=== PATIENT | male | born 1985 | race Caucasian/White ===

== ENCOUNTER 2018-07-11 13:46 | Emergency (ER) | payer OTHER ==
[~2018-07-11 13:46] MED LIST: FEXO1TAB39 PO; MULT1CAP41 PO
--- NOTE | 2018-07-11 13:49 | ER Report ---
History and Physical Time Seen By MD: 13:50 HPI/ROS CHIEF COMPLAINT: Laceration to left index finger HISTORY OF PRESENT ILLNESS: 33-year-old male patient presents to emergency room with complaint of laceration to the left index finger. Patient states that he was using a mud grinder to get stone at work. He states that his finger got sucked into the mud grinder. States that since then he's been having a significant amount of pain. He states he did apply pressure to the wound. He denies any numbness or tingling. Patient states that his last tetanus shot was 2 years ago. REVIEW OF SYSTEMS: Respiratory: No cough, no dyspnea. Cardiovascular: No chest pain, no palpitations. Gastrointestinal: No vomiting, no abdominal pain. Musculoskeletal: No back pain. Allergies: Uncoded Allergies: METHEMASOL (Allergy, Unknown, SHUTS MY LIVER DOWN", 07/11/18) TPU (Allergy, Unknown, "SHUTS MY LIVER DOWN , 07/11/18) Home Meds Active Scripts Hydrocodone Bit/Acetaminophen (HYDROCODON-ACETAMINOPHEN 5-325) 1 Each Tablet, 1 EACH PO Q4-6H PRN for PAIN, #8 TAB Prov:ERIK GUEVARA [facility] 07/11/18 Cephalexin 500 Mg Tab (KEFLEX 500 MG TAB) 500 Mg Tablet, 500 MG PO TID, #21 TAB Prov:PAOLAERIK [facility] 07/11/18 Reported Medications Multivitamins W-Minerals (Multivitamin) 1 Cap Capsule, 1 CAP PO, 0 Refills 04/03/09 Discontinued Reported Medications P-Ephed Hcl/Fexofenadine Hcl (Ysabel-D 12 Hour Tablet) 1 Tab.sr .12 H Tab.sr.12h, 1 TAB.SR PO Q12H, 0 Refills 04/03/09 Past Medical/Surgical History Patient denies any pertinent medical or surgical history. Reviewed Nurses Notes: Yes Constitutional Vital Sign - Last 24 Hours 07/11/18 07/11/18 07/11/18 07/11/18 13:46 13:52 13:57 14:00 Pulse ??? 78 Resp 18 B/P (MAP) 140/75 (96) 148/75 110/62 (78) Pulse Ox 97 O2 Delivery Room Air 07/11/18 07/11/18 07/11/18 07/11/18 14:01 14:16 14:30 14:31 Pulse 73 89 75 B/P (MAP) 121/71 (88) Pulse Ox 98 97 90 07/11/18 07/11/18 07/11/18 07/11/18 14:46 15:00 15:01 15:16 Pulse 84 75 84 B/P (MAP) 130/74 (92) Pulse Ox 98 95 94 07/11/18 07/11/18 15:30 15:31 Pulse 76 B/P (MAP) ???/??? (1665) Pulse Ox 90 Physical Exam General Appearance: The patient is alert, has no immediate need for airway protection and no current signs of toxicity. Patient appears uncomfortable. Respiratory: Chest is non tender, lungs are clear to auscultation. Cardiac: regular rate and rhythm Skin: No rashes or lesions. Patient has a 1 cm x 4 cm laceration to the left index finger. Patient does have good strength with flexion and extension. His movement is limited by pain. The wound appears to go just barely into the subcutaneous tissue and just couple spots. DIFFERENTIAL DIAGNOSIS: After history and physical exam differential diagnosis was considered for fracture, laceration, retained foreign body, ligamentous injury Medical Decision Making EKG/Imaging Imaging Exam type: HAND COMPLETE LEFT History: laceration on left index finger COMPARISON: None :Findings: There is a soft tissue laceration along the volar aspect of the distal left second digit. There are several punctate foreign bodies projecting in the overlapping soft tissues. one dominant opaque foreign body is along the volar aspect and one is along the dorsal aspect adjacent to the DIP joint. The underlying bone appears to be intact. IMPRESSION: 1. Soft tissue laceration along the volar aspect of the distal left second digit. Small punctate foreign bodies are identified detailed above Report Dictated By: Joan Bose MD at 07/11/2018 2:32 PM Report E-Signed By: Joan Bose MD at 07/11/2018 2:34 PM ED Course/Re-evaluation ED Course Patient was admitted to an exam room, history and physical were obtained. Differential diagnoses were considered. On examination patient has a 4 cm x 1 L laceration to the left index finger. Is on the palmar aspect. The wound appears to go into the subcutaneous tissue just in a couple spots. An x-ray was done of the hand which was negative. There was some foreign bodies noted. We did attempt to clean the wound. Patient still had significant amount sensation to the wound itself. The wound was reanesthetized. The wound was then cleaned. I discussed the case with Dr. Rivera. He felt that this wound would heal better by second intention. He requested the patient follow-up next week for dressing changes. I discussed what Dr. Rivera and I had talked about. Patient was concerned about pain. We will go ahead and discharge patient home with a limited supply of pain medication. Because the wound being on his finger we will go ahead and put him on antibiotics. I would like to call [facility] on Saturday to make an appointment with Dr. willis. I discussed with patient who verbalized understanding and agreement with plan. Decision to Disposition Date: Jul 11, 2018 Decision to Disposition Time: 16:19 Depart Departure Latest Vital Signs Vital Signs Date Time Temp Pulse Resp B/P (MAP) Pulse Ox O2 Delivery O2 Flow Rate FiO2 07/11/18 15:31 76 90 07/11/18 15:30 ???/??? (1665) 07/11/18 13:57 18 Room Air Impression: Primary Impression: Laceration of left index finger Condition: Improved Disposition: HOME OR SELF-CARE Referrals: CONNIE RIVERA MD New Scripts Hydrocodone Bit/Acetaminophen (HYDROCODON-ACETAMINOPHEN 5-325) 1 Each Tablet 1 EACH PO Q4-6H PRN for PAIN, #8 TAB Prov: ERIK GUEVRAA 07/11/18 Cephalexin 500 Mg Tab (KEFLEX 500 MG TAB) 500 Mg Tablet 500 MG PO TID, #21 TAB Prov: ERIK GUEVARA 07/11/18 Patient Instructions: Finger Laceration (ED) Additional Instructions: Keep wound dry for 48 hours. Follow up with Dr. Rivera, call on Saturday to make appointment. Monitor for signs of infection; redness, swelling, heat, discharge, increasing pain or red streaking. Take Ibuprofen as needed for pain. Return to the ER with any concerns. You may change dressing as needed. Problem Qualifiers Primary Impression: Laceration of left index finger Encounter type: initial encounter Damage to nail status: with damage Foreign body presence: with foreign body Qualified Codes: S61.321A - Laceration with foreign body of left index finger with damage to nail, initial encounter ERIK GUEVARA Jul 11, 2018 13:49
--- NOTE | 2018-07-11 14:38 | RADIOLOGY IMAGING REPORT ---
FACILITY: [facility] [place] PATIENT NAME: Salomón Bergman : 1985 MR: [id number] V: [id number] EXAM DATE: ORDERING PHYSICIAN: ERIK GUEVARA TECHNOLOGIST: Location: [facility] [place] Patient: Salomón Bergman : 1985 Visit/Account:[id number] Date of Sevice: 07/11/2018 Exam type: HAND COMPLETE LEFT History: laceration on left index finger COMPARISON: None :Findings: There is a soft tissue laceration along the volar aspect of the distal left second digit. There are several punctate foreign bodies projecting in the overlapping soft tissues. one dominant o paque foreign body is along the volar aspect and one is along the dorsal aspect adjacent to the DIP j oint. The underlying bone appears to be intact. IMPRESSION: 1. Soft tissue laceration along the volar aspect of the distal left second digit. Small punctate fo reign bodies are identified detailed above Report Dictated By: Joan Bose MD at 07/11/2018 2:32 PM Report E-Signed By: Joan Bose MD at 07/11/2018 2:34 PM WSN:[id number]
[2018-07-11] MEDS ORDERED: HYDR-385 PO (16:19)
[2018-07-11] MEDS ORDERED: CEPH500T7 PO (16:19)
== END 2018-07-11 16:29 | disposition home or self-care (01) ==
LOC: ER 13:56
DX: S61.321A Laceration with foreign body of left index finger with damage to nail, initial encounter (principal); W31.89XA Contact with other specified machinery, initial encounter
CPT/HCPCS: 99283